=== PATIENT | male | born 1985 | race Caucasian/White ===

== ENCOUNTER 2019-10-20 16:31 | Inpatient (IN) | payer MEDICARE ==
[~2019-10-20] VITALS: Ht 182.9 cm; Wt 64.2 kg
[2019-10-20 16:38] VITALS: BP 155/101
[2019-10-20 17:04] LABS: ABSOLUTE BASOPHILS 0.1 thou/uL (0.0-0.2); ABSOLUTE LYMPHOCYTES 1.6 thou/uL (0.8-5.3); ABSOLUTE MONOCYTES 0.3 thou/uL (0.0-1.2); ABSOLUTE NEUTROPHILS 7.6 thou/uL (1.6-8.1); BASOPHILS 0.8 %; EOSINOPHILS 0.5 %; HEMATOCRIT 38.6 % (42.0-52.0); HEMOGLOBIN 13.3 gm/dL (14.0-18.0); LYMPHOCYTES 16.3 %; MCH 31.9 pg (26.0-34.0); MCHC 34.5 g/dL (28.0-37.0); MCV 92.3 fL (80.0-100.0); MONOCYTES 3.6 %; MPV 7.9 fl. (7.2-11.1); NUCLEATED RBCS 0 /100WBC; PLATELET COUNT* 358 thou/uL (150-400); POLYS 78.8 %; RBC 4.18 mil/uL (4.50-6.00); RDW-CV 13.3 % (10.5-14.5); WBC 9.7 thou/uL (4.0-11.0)
--- NOTE | 2019-10-20 17:11 | NUR ---
CONTACTED NEXT OF KIN'S , WAS INSTRUCTED TO HAVE NEXT OF KIN CALL
[2019-10-20 17:13] LABS: CALCIUM 8.7 mg/dL (8.5-10.1); CREATININE 1.1 mg/dL (0.6-1.3); POTASSIUM 3.6 mmol/L (3.5-5.1)
[2019-10-20 17:17] LABS: ALBUMIN 4.1 g/dL (3.4-5.0); TOTAL BILIRUBIN 1.1 mg/dL (<0.1-1.0); TOTAL PROTEIN 7.6 g/dL (6.4-8.2)
[2019-10-20 17:19] LABS: ACETAMINOPHEN < 2 ug/mL (10-30); ALCOHOL < 10 mg/dL (<10); SALICYLATE < 2.8 mg/dL (2.8-20.0)
--- NOTE | 2019-10-20 18:20 | NUR ---
UNABLE TO REACH PT'S NEXT OF KIN, INSTRUCTED NEXT OF KINS TO HAVE NEXT OF KIN TO CALL [facility]. [facility] NOTIFIED TO SEE IF THEY HAD ANOTHER NEXT OF KIN
--- NOTE | 2019-10-20 18:44 | NUR ---
UNABLE TO COMPLETE CAT SCAN AT THIS TIME DUE TO PT GETTING AGITATED AT THIS TIME
[2019-10-20 20:29] LABS: URINE BILIRUBIN 1+ (Negative); URINE BLOOD NEGATIVE (Negative); URINE CLARITY CLEAR; URINE COLOR DARK YELLOW; URINE GLUCOSE-RANDOM NEGATIVE (Negative); URINE KETONES 2+ (Negative); URINE LEUKOCYTES-REFLEX NEGATIVE (Negative); URINE NITRITE-REFLEX NEGATIVE (Negative); URINE PROTEIN TRACE (Negative); URINE SPECIFIC GRAVITY >= 1.030 (1.005-1.030); URINE UROBILINOGEN 0.2 E.U./dl (0.2-1.0)
[2019-10-20 20:31] LABS: ICTOTEST (BILI CONFIRMATORY) Negative (Negative)
[2019-10-20 20:37] LABS: AMP/METHAMP POSITIVE (Negative); BARBITURATES Negative (Negative); BENZODIAZEPINES Negative (Negative); COCAINE Negative (Negative); METHADONE Negative (Negative); OPIATES Negative (Negative); PCP Negative (Negative); THC Negative (Negative)
--- NOTE | 2019-10-20 23:07 | NUR ---
NEXT OF KIN TELEPHONE NUMBER PROVIDED BY STAFF AT SHIFT CHANGE IS AUNMirna MCKOY [phone].
[2019-10-21] VITALS (7 sets, daily range): BP systolic 120–146; BP diastolic 52–96
--- NOTE | 2019-10-21 03:33 | NUR ---
Pt admitted from ED with AMS. Pt awake and answering questions. [place] sandwich lunch box given per pt request. Pt set off bed alarm after eating, states he needs to use restroom. Voided in toilet then states he needs to have BM. Door closed. [place] noise in bathroom that sounded as if pt not sitting on toilet. Opened door and found pt standing in shower behind curtain smoking a cigarette. Pack of cigarettes and electric fan assembler taken from pt per RN request, called Security to keep until discharge. Educated pt of dangers of smoking in hospital environment. Pt verbalizes understanding. VSS. Fall precautions in place. Pt reports that he has no job and lives alone in apartment. States he is in contact with aunt once per month. Per ER report pt has schizophrenia; pt denies. Pt initially reported no recreational drug use, but when told his screen was positive for meth pt states he does not use it very often. States last time was approx one month ago. Denies alcohol use. States he smokes 1/2 pack cigarettes per day. Occasional tics noted. Per POT FILLER, phone number for pt's aunt called. Man answered and reported that he would give the message to her when she gets home. Will continue to monitor.
--- NOTE | 2019-10-21 12:00 | NUR ---
CONTINUE TO FOLLOW. MET WITH PT, JENNIFFER MCCABE. TO HAVE TELEPSYCH CONSULT. PT STATES HE GOES TO IN [place], THINKS IT'S DR JORDAN. HE WALKS MOST EVERY WHERE. STATED HE PROBABLY NEEDS TO TAKE MEDICINE WHEN HE GOES HOME. WILL FOLLOW
--- NOTE | 2019-10-21 16:04 | NUR ---
ASSUSMED CARE OF PT APPROX 0730. PT HAS A VERY FLAT AFFECT, ANSWERS QUESTIONS WITH YES OR NO AND SOMETIMES NOT AT ALL. PT HAD TELE PSYCH COMPLETED TODAY AND RECOMMENDATIONS RECIEVED FROM CONSULT, NOTIFIED. SAFTEY PRECAUTIONS UTILIZED AND HOURLY ROUNDING FOR NEEDS.
--- NOTE | 2019-10-21 19:31 | NUR ---
PT PULLED OUT IV AND TOOK OFF TELE MONITOR. HE WILL NOT ALLOW STAFF TO REPLACE THE MONITOR. HE IS SAYING HE GOING TO WALK HOME. THE DOCTOR WAS NOTIFIED AND ORDERS WERE RECIEVED. PT IS DRESSED AND IS SITTING IN THE BEDSIDE CHAIR. PT BEING MONITORED.
[2019-10-22] VITALS: BP 113/56
--- NOTE | 2019-10-22 04:51 | NUR ---
PT AGGITATED AT BEGINING OF SHIFT, PULLED OUT IV, REFUSING TELE MONITOR. NOTIFIED, PT MADE MED-SURG STATUS, AND OKAYED FOR NO IV ACCESS. ROOM STRIPPED. ONE-ON-ONE MAINTAINED FOR PATIENTS SAFETY. PT SLEPT REST OF SHIFT AFTER GETTING BACK IN BED. WILL CONTINUE WITH PLAN OF CARE.
[2019-10-22 07:15] VITALS: BP 122/82
[2019-10-22 15:29] VITALS: BP 117/72
--- NOTE | 2019-10-22 15:37 | NUR ---
ASSESSMENT COMPLETE. PT SLEPT MOST OF THE DAY. SITTER AT BEDSIDE. VSS. PENDING PLACEMENT AT THIS TIME. PT HAS NO OTHER CONCERNS AT THIS TIME. SEE ASSESSMENT AND VITALS FOR OTHER DETAILS, CALL LIGHT WITHIN REACH. WILL CONTINUE PLAN OF CARE
--- NOTE | 2019-10-22 15:40 | NUR ---
GERALD met with pt Aunt Apryl who provided phone number of [phone] and discussed at length about pt home situation and pt aunt trying to assist pt with basic needs but many challenges with pt behaviors and other psych needs. SW called [facility] who was unable to even review referral because they were at capacity at this time. SW called [facility] to discuss referral and faxed referral, pending response. SW called [facility] and faxed referral; they will not accept pt without affidavits even if pt is willing to dc to inpt psych unit. GERALD tried calling [facility] with wrong number; SW spoke with dc environmental planner to assist with faxing more referrals to inpt psych facilities. SW to continue to follow to assist with finalizing placement.
== END 2019-10-22 21:06 | DRG 101 ==
LOC: M.ERS 16:31 → M.3W 10-21 00:22 → M.TBA-ER 10-21 00:22 → M.2W 10-21 00:22 → M.3W 10-22 10:56
PROVIDERS: Emergency Medicine Emergency Medical Services; ADMIT Internal Medicine
DX: G40.89 Other seizures (principal); F20.9 Schizophrenia, unspecified; I10 Essential (primary) hypertension; F32.9 Major depressive disorder, single episode, unspecified; F15.10 Other stimulant abuse, uncomplicated; F17.210 Nicotine dependence, cigarettes, uncomplicated; Z82.49 Family history of ischemic heart disease and other diseases of the circulatory system

== ENCOUNTER 2020-06-05 14:24 | Emergency (ER) | payer MEDICARE ==
[~2020-06-05] VITALS: Ht 172.7 cm; Wt 60.8 kg
[2020-06-05 14:45] LABS: ABSOLUTE BASOPHILS 0.1 thou/uL (0.0-0.2); ABSOLUTE EOSINOPHILS 0.1 thou/uL (0.0-0.7); ABSOLUTE LYMPHOCYTES 2.1 thou/uL (0.8-5.3); ABSOLUTE MONOCYTES 0.4 thou/uL (0.0-1.2); ABSOLUTE NEUTROPHILS 6.1 thou/uL (1.6-8.1); BASOPHILS 1.2 %; EOSINOPHILS 1.2 %; HEMATOCRIT 35.7 % (42.0-52.0); HEMOGLOBIN 12.4 gm/dL (14.0-18.0); LYMPHOCYTES 24.3 %; MCHC 34.7 g/dL (28.0-37.0); MCV 89.3 fL (80.0-100.0); MPV 7.3 fl. (7.2-11.1); NUCLEATED RBCS 0 /100WBC; PLATELET COUNT* 400 thou/uL (150-400); POLYS 69.3 %; RBC 3.99 mil/uL (4.50-6.00); RDW-CV 13.8 % (10.5-14.5); WBC 8.8 thou/uL (4.0-11.0)
[2020-06-05 14:55] LABS: APTT 25.9 Seconds (25.0-31.3); INR 1.1; PROTIME 11.4 Seconds (9.20-11.50)
[2020-06-05 15:05] LABS: ALCOHOL < 10 mg/dL (<10); SALICYLATE < 2.8 mg/dL (2.8-20.0)
[2020-06-05 15:06] LABS: ACETAMINOPHEN < 2 ug/mL (10-30)
[2020-06-05 15:14] LABS: CALCIUM 8.4 mg/dL (8.5-10.1); POTASSIUM 3.4 mmol/L (3.5-5.1)
[2020-06-05 15:19] LABS: ALBUMIN 3.7 g/dL (3.4-5.0); CK-MB MASS 1.4 ng/mL (<0.5-3.6); TOTAL BILIRUBIN 0.5 mg/dL (<0.1-1.0); TOTAL PROTEIN 6.8 g/dL (6.4-8.2)
[2020-06-05 15:59] LABS: URINE BILIRUBIN NEGATIVE (Negative); URINE BLOOD NEGATIVE (Negative); URINE CLARITY CLEAR; URINE COLOR YELLOW; URINE GLUCOSE-RANDOM NEGATIVE (Negative); URINE KETONES NEGATIVE (Negative); URINE LEUKOCYTES-REFLEX NEGATIVE (Negative); URINE NITRITE-REFLEX NEGATIVE (Negative); URINE PROTEIN TRACE (Negative); URINE SPECIFIC GRAVITY 1.025 (1.005-1.030); URINE UROBILINOGEN 0.2 E.U./dl (0.2-1.0)
[2020-06-05 16:08] LABS: AMP/METHAMP POSITIVE (Negative); BARBITURATES Negative (Negative); BENZODIAZEPINES Negative (Negative); COCAINE Negative (Negative); METHADONE Negative (Negative); OPIATES Negative (Negative); PCP Negative (Negative); THC Negative (Negative)
[2020-06-05 20:36] VITALS: BP 154/119
== END 2020-06-05 20:37 | disposition home or self-care (01) ==
LOC: M.ERS 14:24
PROVIDERS: Emergency Medicine Emergency Medical Services
DX: F20.9 Schizophrenia, unspecified (principal); F15.90 Other stimulant use, unspecified, uncomplicated; M79.89 Other specified soft tissue disorders; I10 Essential (primary) hypertension